=== PATIENT | female | born 1955 | race Caucasian/White ===

== ENCOUNTER 2016-07-31 07:42 | Day surgery (SDC) | payer OTHER ==
--- NOTE | ~2016-07-31 | EGD ---
EGD REPORT [facility] [address] [id number] NAME: AYLIN ADKINS : 55 STATUS : REG [facility] [place] PAT#: [id number] AGE: 61 ADM/REG DATE : 07/31/16 MR#: [id number] REPORT SERV DATE: 07/31/16 DICTATED BY: FABIAN HUMPHRIES DATE: 07/31/16 REPORT STATUS : Draft [facility]ANS[facility]IBED BY: [facility] DATE: 07/31/16 [facility] Center Patient Name: Aylin Adkins Date of : 1955 Attending MD: BHUPINDER HUMPHRIES MD Procedure Date No Time: 07/31/2016 Procedure: Colonoscopy Indications: High risk colon cancer surveillance: Personal history of colonic polyps Referring MD: NIC CASTLE Medicines: See the Anesthesia note for documentation of the administered medications Complications: No immediate complications. Estimated blood loss: None. Procedure: Pre-Anesthesia Assessment: - ASA Grade Assessment: II - A patient with mild systemic disease. - Prior to the procedure, a History and Physical was performed, and patient medications and allergies were reviewed. The patient's tolerance of previous anesthesia was also reviewed. The risks and benefits of the procedure and the sedation options and risks were discussed with the patient. All questions were answered, and informed consent was obtained. Prior Anticoagulants: The patient has taken no previous anticoagulant or antiplatelet agents. After reviewing the risks and benefits, the patient was deemed in satisfactory condition to undergo the procedure. After I obtained informed consent, the scope was passed under direct vision. Throughout the procedure, the patient's blood pressure, pulse, and oxygen saturations were monitored continuously. The PCF [id number] was introduced through the and advanced to the terminal ileum. The ileocecal valve, appendiceal orifice, terminal ileum and rectum were photographed. The entire colon was examined. The colonoscopy was performed without difficulty. The patient tolerated the procedure well. The quality of the bowel preparation was adequate. Findings: The perianal and digital rectal examinations were normal. The terminal ileum appeared normal. A sessile polyp was found in the distal descending colon. The polyp was 3 mm in size. The polyp was removed with a cold biopsy forceps. Resection and retrieval were complete. Multiple small and large-mouthed diverticula were found in the sigmoid EGD REPORT [address] [place]. [address] NAME: AYLIN ADKINS : 55 STATUS : REG [facility]#: [id number] AGE: 61 ADM/REG DATE : 07/31/16 MR#: [id number] REPORT SERV DATE: 07/31/16 DICTATED BY: FABIAN HUMPHRIES DATE: 07/31/16 REPORT STATUS : Draft TRANSCRIBED BY: [facility] DATE: 07/31/16 colon. Non-bleeding internal hemorrhoids were found during retroflexion and were Grade I (internal hemorrhoids that do not prolapse). No other significant abnormalities were identified in a careful examination of the remainder of the colon. Impression: - The examined portion of the ileum was normal. - One 3 mm polyp in the distal descending colon. Resected and retrieved. - Diverticulosis in the sigmoid colon. - Non-bleeding internal hemorrhoids. Recommendation: - Patient has a contact number available for emergencies. The signs and symptoms of potential delayed complications were discussed with the patient. Return to normal activities tomorrow. Written discharge instructions were provided to the patient. - High fiber diet indefinitely. - Discharge patient to home. - Continue present medications. - Await pathology results. - Repeat colonoscopy in 5 years for surveillance. Procedure Code(s): --- Professional --- 00747, Colonoscopy, flexible, proximal to splenic flexure; with biopsy, single or multiple Diagnosis Code(s): --- Professional --- K64.0, First degree hemorrhoids K57.30, Diverticulosis of large intestine without perforation or abscess without bleeding D12.4, Benign neoplasm of descending colon Z86.010, Personal history of colonic polyps CPT copyright 2013 [employer]. All rights reserved. The codes documented in this report are preliminary and upon television servicer review may be revised to meet current compliance requirements. BHUPINDER HUMPHRIES MD 07/31/2016 9:38 AM This report has been signed electronically. Number of Addenda: 0 Note Initiated On: 07/31/2016 9:12 AM EGD REPORT [facility] [address] [id number] NAME: AYLIN ADKINS : 55 STATUS : REG [facility] [place] PAT#: [id number] AGE: 61 ADM/REG DATE : 07/31/16 MR#: [id number] REPORT SERV DATE: 07/31/16 DICTATED BY: FABIAN HUMPHRIES DATE: 07/31/16 REPORT STATUS : Draft TRANSCRIBED BY: [employer] DATE: 07/31/16 Scope Withdrawal Time 0 hours 8 minutes 9 seconds [address] [id number]
[~2016-07-31 07:42] MED LIST: ACET500CAP PO; ADVIL PO; ASTELIN NAS; CIP5 PO; ESTRACE1 MG PO; HYOMAX-SL0.125 MG PO; LEXAPRO10 PO; NASONEX NAS; PREM45 PO; PREM625 PO; PRILO PO; PROBIOTIC PO; SOMA250 MG OR; SOMA250 MG PO; ZANTAC150 MG PO; [UNRECOGNIZED DRUG - OTHER]
== END 2016-07-31 23:59 | disposition home or self-care (01) ==
LOC: DMU 07:42
PROVIDERS: Internal Medicine Gastroenterology
PROC: 0DBM8ZZ Excision of Descending Colon, Via Natural or Artificial Opening Endoscopic (ICD-10-PCS; principal; 2016-07-31 09:30)
DX: Z12.11 Encounter for screening for malignant neoplasm of colon (principal); D12.4 Benign neoplasm of descending colon; K64.0 First degree hemorrhoids; K57.30 Diverticulosis of large intestine without perforation or abscess without bleeding; Z86.010 Personal history of colon polyps; E78.00 Pure hypercholesterolemia, unspecified; K21.9 Gastro-esophageal reflux disease without esophagitis; J45.909 Unspecified asthma, uncomplicated; H93.19 Tinnitus, unspecified ear; Z88.1 Allergy status to other antibiotic agents; Z88.5 Allergy status to narcotic agent; Z88.8 Allergy status to other drugs, medicaments and biological substances; Z79.899 Other long term (current) drug therapy
CPT/HCPCS: 88305